=== PATIENT | female | born 1975 | race Hispanic/Latino ===

== ENCOUNTER 2018-02-19 21:50 | Emergency (ER) | payer BC ==
[2018-02-19] MEDS ORDERED: Bupivacaine 0.5% 10 ML VIAL ONE (22:26)
[2018-02-19] MEDS ORDERED: Adacel (T-DAP) 0.5 ML VIAL ONE (22:42)
== END 2018-02-19 23:18 | disposition home or self-care (01) ==
LOC: BURERS 21:50
DX: S61.214A Laceration without foreign body of right ring finger without damage to nail, initial encounter (principal); W26.8XXA Contact with other sharp object(s), not elsewhere classified, initial encounter
CPT/HCPCS: 12001; 90471; 90715; J3490

== ENCOUNTER 2023-03-24 18:10 | Emergency (ER) | payer OTHER, SELFPAY ==
[2023-03-24] MEDS ORDERED: Lidocaine 1% (PF) 30 ML VIAL ONE (18:46)
[2023-03-24] MEDS ORDERED: Lidocaine 1% PF 5 ML VIAL ONE (18:47)
[2023-03-24] MEDS ORDERED: Boostrix 0.5 ML (Tdap) VIAL (>/=7 yrs of age) ONE (19:48)
== END 2023-03-24 19:53 | disposition home or self-care (01) ==
LOC: BURERS 18:10
DX: S91.111A Laceration without foreign body of right great toe without damage to nail, initial encounter (principal); Z23 Encounter for immunization; X58.XXXA Exposure to other specified factors, initial encounter
CPT/HCPCS: 12002; 90471; 90715; J2001